=== PATIENT | female | born 1955 | race Caucasian/White ===

== ENCOUNTER 2019-09-13 15:05 | Day surgery (SDC) | payer MEDICARE ==
[~2019-09-13] VITALS: Ht 154.9 cm; Wt 62.2 kg
[2019-09-13 14:54] VITALS: BP 144/76
[2019-09-13] MEDS ORDERED: DULO60CA7 PO (15:40)
[2019-09-13] MEDS ORDERED: MESA0.372 PO (15:40)
[2019-09-13] MEDS ORDERED: LACTATED RINGERS 1,000 ML IV SCH (15:57)
[2019-09-13] MEDS ORDERED: BUPIVACAINE/PF 0.25% ONE (17:21)
[2019-09-13] MEDS ORDERED: EPINEPHRINE 1 MG/ML, 1ML ONE (17:22)
[2019-09-13] MEDS ORDERED: SILVER NITRATE STICK TP ONE (17:22)
[2019-09-13] MEDS ORDERED: MIDAZOLAM 1 MG/ML, 2ML ONE (17:24)
[2019-09-13] MEDS ORDERED: FENTANYL PF 100 MCG/2ML ONE (17:24)
[2019-09-13] MEDS ORDERED: DEXAMETHASONE 4 MG/ML, 1ML ONE (17:34)
[2019-09-13] MEDS ORDERED: PROPOFOL 10 MG/ML, 20ML ONE (17:34)
[2019-09-13] MEDS ORDERED: KETOROLAC 30 MG/1 ML ONE (17:34)
[2019-09-13] MEDS ORDERED: ONDANSETRON 2MG/ML, 2ML ONE (17:34)
[2019-09-13] MEDS ORDERED: FENTANYL PF 100 MCG/2ML IV PRN (18:30)
[2019-09-13] MEDS ORDERED: ACETAMINOPHEN 325 MG TABLET PO PRN (18:30)
[2019-09-13] MEDS ORDERED: HALOPERIDOL 5 MG/ML IV PRN (18:30)
[2019-09-13] MEDS ORDERED: hydrALAzine 20 MG/ML, 1ML IV PRN (18:30)
[2019-09-13] MEDS ORDERED: HYDROmorphone 2 MG/ML, 1ML IVPush PRN (18:30)
[2019-09-13] MEDS ORDERED: MEPERIDINE/PF 25MG/ML,1ML IVPush PRN (18:30)
[2019-09-13] MEDS ORDERED: OXYcodone 5 MG/5 ML ORAL.SOL UDC PO PRN (18:30)
[2019-09-13] MEDS ORDERED: HYDROmorphone 1 MG/ML, 1ML INJ IV PRN (20:00)
[2019-09-13] MEDS ORDERED: OXYcodone/APAP 5/325MG TABLET PO PRN (20:00)
[2019-09-13] MEDS ORDERED: KETOROLAC 30 MG/1 ML IV PRN (20:00)
[2019-09-13] MEDS ORDERED: ONDANSETRON 2MG/ML, 2ML IV PRN (20:00)
== END 2019-09-13 19:50 | disposition home or self-care (01) ==
LOC: OUT 15:05 → 4NE 18:59 → OUT 19:50
PROVIDERS: ATTEND Obstetrics & Gynecology
DX: N95.0 Postmenopausal bleeding (principal); N88.2 Stricture and stenosis of cervix uteri; N84.1 Polyp of cervix uteri; N84.0 Polyp of corpus uteri; R87.612 Low grade squamous intraepithelial lesion on cytologic smear of cervix (LGSIL); F41.9 Anxiety disorder, unspecified; F32.9 Major depressive disorder, single episode, unspecified; K50.90 Crohn's disease, unspecified, without complications; Z82.49 Family history of ischemic heart disease and other diseases of the circulatory system
CPT/HCPCS: 58558; 88305; J1100; J1885; J2250; J2405; J2704; J3010; J7120; G0378; J0171; J3490